=== PATIENT | male | born 1995 | race Caucasian/White ===

== ENCOUNTER 2019-03-05 21:48 | Emergency (ER) | payer MEDICAID ==
[~2019-03-05] VITALS: Ht 165.1 cm; Wt 71.5 kg
[2019-03-06] MEDS ORDERED: LIDOCAINE HCL/EPINEPHRINE 1%-EPI 1:100,000 30 ML VIAL INFIL ONE
[2019-03-06] MEDS ORDERED: LIDOCAINE HCL/EPINEPHRINE 1%-EPI 1:100,000 20 ML VIAL ONE (00:06)
[2019-03-06] MEDS ORDERED: TETANUS, DIPHTHERIA, PERTUSSIS VAC/PF 0.5ML (>7YR OLD) IM ONE (00:30)
[2019-03-06 01:14] VITALS: BP 123/70
== END 2019-03-06 01:20 | disposition home or self-care (01) ==
LOC: ER 21:48
DX: S51.811A Laceration without foreign body of right forearm, initial encounter (principal); F12.10 Cannabis abuse, uncomplicated; F17.210 Nicotine dependence, cigarettes, uncomplicated; Z71.6 Tobacco abuse counseling; X58.XXXA Exposure to other specified factors, initial encounter; Y93.89 Activity, other specified; Y92.018 Other place in single-family (private) house as the place of occurrence of the external cause
CPT/HCPCS: 12001; 90471; 90715; 99283; J3490; Z7610

== ENCOUNTER 2019-03-09 20:22 | Emergency (ER) | payer MEDICAID ==
[~2019-03-09] VITALS: Ht 167.6 cm; Wt 72.5 kg
[2019-03-09 20:50] VITALS: BP 130/77
== END 2019-03-09 22:12 | disposition home or self-care (01) ==
LOC: ER 20:22
DX: Z48.00 Encounter for change or removal of nonsurgical wound dressing (principal); F17.200 Nicotine dependence, unspecified, uncomplicated
CPT/HCPCS: 99283

== ENCOUNTER 2022-12-07 00:28 | Emergency (ER) | payer MEDICAID, OTHER ==
[~2022-12-07] VITALS: Ht 167.6 cm; Wt 75.1 kg
[2022-12-07 01:32] VITALS: BP 124/76; PULSE 60; RESP 17; TEMP 97.3; O2SAT 100
[2022-12-07] MEDS ORDERED: FLUORESCEIN SODIUM 1MG/STRIP BOTHEYE ONE (02:00)
[2022-12-07] MEDS ORDERED: TETRACAINE 0.5% OPHTH DROPS 4ML BOTHEYE ONE (02:00)
[2022-12-07] MEDS ORDERED: POLY10DR RIGHTEYE (03:46)
== END 2022-12-07 03:57 | disposition home or self-care (01) ==
LOC: ER 00:28
DX: T15.91XA Foreign body on external eye, part unspecified, right eye, initial encounter (principal); X58.XXXA Exposure to other specified factors, initial encounter; Y93.89 Activity, other specified; Y92.89 Other specified places as the place of occurrence of the external cause; Y99.8 Other external cause status
CPT/HCPCS: 65220; 99284